=== PATIENT | male | born 1955 | race Caucasian/White ===

== ENCOUNTER → 2017-12-04 | Outpatient (CLI) | payer OTHER ==
[~2017-12-04] MED LIST: COZAAR50 MG
== END | disposition home or self-care (01) ==
LOC: PPH VACUNA 15:25
DX: Z23 Encounter for immunization (principal)

== ENCOUNTER 2019-12-08 08:39 | Outpatient (CLI) | payer OTHER | END 2019-12-08 09:05 | disposition home or self-care (01) | LOC: LAB 08:39 | DX: R19.7 Diarrhea, unspecified (principal); B17.8 Other specified acute viral hepatitis ==

== ENCOUNTER 2019-12-13 07:41 | Outpatient (CLI) | payer OTHER | END 2019-12-13 07:53 | disposition home or self-care (01) | LOC: TOM 07:41 | DX: R10.2 Pelvic and perineal pain (principal) ==

== ENCOUNTER → 2020-02-20 | Outpatient (CLI) | payer OTHER | END | disposition home or self-care (01) | LOC: RAD 13:01 | PROVIDERS: ATTEND Anesthesiology Pain Medicine | DX: M54.5 Low back pain (principal); M41.9 Scoliosis, unspecified; M51.36 Other intervertebral disc degeneration, lumbar region | CPT/HCPCS: 72148 ==

== ENCOUNTER 2020-06-25 10:00 | Outpatient (CLI) | payer OTHER | END 2020-06-25 18:00 | disposition home or self-care (01) | LOC: PPH VACUNA 10:00 | DX: Z23 Encounter for immunization (principal) ==

== ENCOUNTER 2020-07-22 15:26 | Outpatient (CLI) | payer OTHER | END 2020-07-22 15:30 | disposition home or self-care (01) | LOC: RAD 15:26 | PROVIDERS: ATTEND Specialist | DX: J45.998 Other asthma (principal) ==

== ENCOUNTER 2020-09-22 14:55 | Outpatient (CLI) | payer OTHER | END 2020-09-22 18:00 | disposition home or self-care (01) | LOC: PPH VACUNA 14:55 | DX: Z23 Encounter for immunization (principal) ==

== ENCOUNTER 2020-10-12 11:10 | Outpatient (CLI) | payer OTHER | END 2020-10-12 11:11 | disposition home or self-care (01) | LOC: PPH VACUNA 11:10 | DX: Z23 Encounter for immunization (principal) ==

== ENCOUNTER 2021-07-05 08:00 | Outpatient (CLI) | payer OTHER | END 2021-07-05 08:30 | disposition home or self-care (01) | LOC: PPH VACUNA 08:00 | PROVIDERS: ATTEND Emergency Medicine Pediatric Emergency Medicine | DX: Z23 Encounter for immunization (principal) ==

== ENCOUNTER 2022-01-17 09:00 | Outpatient (CLI) | payer OTHER | END 2022-01-17 09:15 | disposition home or self-care (01) | LOC: PPH VACUNA 09:00 | PROVIDERS: ATTEND Emergency Medicine Pediatric Emergency Medicine | DX: Z23 Encounter for immunization (principal) ==

== ENCOUNTER 2022-03-23 09:00 | Outpatient (CLI) | payer OTHER | END 2022-03-23 10:30 | disposition home or self-care (01) | LOC: ASH CLINIC 09:00 | PROVIDERS: ATTEND Internal Medicine | DX: U07.1 COVID-19 (principal) ==

== ENCOUNTER 2022-08-02 11:10 | Outpatient (CLI) | payer OTHER | END 2022-08-02 11:15 | disposition home or self-care (01) | LOC: PPH VACUNA 11:10 | PROVIDERS: ATTEND Emergency Medicine Pediatric Emergency Medicine | DX: Z23 Encounter for immunization (principal) ==

== ENCOUNTER 2023-09-29 09:05 | Outpatient (CLI) | payer OTHER | END 2023-09-29 09:48 | disposition home or self-care (01) | LOC: RAD 09:05 | PROVIDERS: ATTEND Orthopaedic Surgery | DX: M25.561 Pain in right knee (principal); M25.562 Pain in left knee; M25.551 Pain in right hip; M25.552 Pain in left hip ==

== ENCOUNTER 2024-11-01 06:34 | Outpatient (CLI) | payer OTHER ==
[2024-11-01 07:14] LABS: HEMATOCRIT 49.1 % (39.0-48.0); HEMOGLOBIN 17.1 g/dL (13-16.00); MEAN CELL VOLUME 93.6 fL (80.0-100.00); MEAN CORPUSCULAR HEMOGLOBIN 32.6 pg (27.00-32.0); MEAN CORPUSCULAR HGB CONC 34.8 g/dl (32.0-36.0); PLATELET COUNT 249 K/uL (150-450); RED BLOOD COUNT 5.24 M/uL (4.00-6.00); RED CELL DISTRIBUTION WIDTH 13.5 % (11.5-14.5)
[2024-11-01 07:49] LABS: URINE APPEARANCE Clear; URINE BACTERIA 14.6 uL (0.0-1933); URINE BILIRRUBIN Negative (NEGATIVE); URINE BLOOD Negative; URINE COLOR Yellow; URINE EPITHELIAL CELLS 5.5 uL (0.0-38.8); URINE GLUCOSE Negative (NEGATIVE); URINE KETONE Negative (NEGATIVE); URINE LEUKOCYTE Small; URINE NITRATE Negative; URINE PROTEIN Negative (NEGATIVE); URINE RBC 2.2 uL (0.0-20.8); URINE UROBILINOGEN 0.2 E.U./dl; URINE WBC 23.3 uL (0.0-23.2)
[2024-11-01 07:51] LABS: URINE CAST 0.14 uL (0.0-1.40)
[2024-11-01 08:46] LABS: ALBUMIN 3.9 gm/dL (3.4-5.0); BILIRUBIN TOTAL 1.51 mg/dL (0.3-1.2); CALCIUM 9.2 mg/dL (8.5-10.1); CHOL HDL RATIO 3.4 (0-5.0); CREATININE SERUM 0.98 mg/dL (0.70-1.30); GFR 76.29; POTASSIUM 4.68 mEq/L (3.5-5.1); T4 TOTAL 7.91 UG/DL (4.5-12.1); TOTAL PROTEIN 6.9 gm/dL (6.4-8.2); TSH 2.09 uIU/mL (0.358-3.74)
[2024-11-01 09:04] LABS: PROSTATIC SPECIFIC ANTIGEN 9.54 NG/ML (0.010-4.00)
[2024-11-01 10:15] LABS: ob NEGATIVE (NEGATIVE)
== END 2024-11-01 06:35 | disposition home or self-care (01) ==
LOC: LAB 06:34
PROVIDERS: ATTEND Internal Medicine
DX: E03.9 Hypothyroidism, unspecified (principal); N39.0 Urinary tract infection, site not specified; E78.9 Disorder of lipoprotein metabolism, unspecified; N41.0 Acute prostatitis; I10 Essential (primary) hypertension; R97.20 Elevated prostate specific antigen [PSA]

== ENCOUNTER 2024-12-17 06:19 | Outpatient (CLI) | payer OTHER ==
[2024-12-17 07:10] LABS: HEMATOCRIT 47.1 % (39.0-48.0); MEAN CELL VOLUME 94.3 fL (80.0-100.00); MEAN CORPUSCULAR HGB CONC 33.9 g/dl (32.0-36.0); PLATELET COUNT 255 K/uL (150-450); RED BLOOD COUNT 4.99 M/uL (4.00-6.00); RED CELL DISTRIBUTION WIDTH 13.2 % (11.5-14.5)
[2024-12-17 07:16] LABS: INR 1.01; PARTIAL THROMBOPLASTIN TIME 28.9 SECONDS (22.0-34.0)
[2024-12-17 07:29] LABS: ALBUMIN 3.6 gm/dL (3.4-5.0); BILIRUBIN TOTAL 1.18 mg/dL (0.3-1.2); CALCIUM 8.9 mg/dL (8.5-10.1); CREATININE SERUM 0.98 mg/dL (0.70-1.30); GFR 76.29; GLOBULINA 2.9 G/DL (2.4-3.5); MAGNESIUM 2.3 mg/dL (1.8-2.4); POTASSIUM 4.26 mEq/L (3.5-5.1); TOTAL PROTEIN 6.5 gm/dL (6.4-8.2); URIC ACID 4.6 mg/dL (3.5-8.5)
[2024-12-17 07:40] LABS: COL EPI 140 SECONDS (82-175)
[2024-12-17 08:56] LABS: PH,URINE 5.5 (5.0-8.0); URINE APPEARANCE Cloudy; URINE BILIRRUBIN Negative (NEGATIVE); URINE BLOOD Negative; URINE COLOR Dark Yellow; URINE GLUCOSE Negative (NEGATIVE); URINE KETONE Negative (NEGATIVE); URINE LEUKOCYTE Negative; URINE NITRATE Negative; URINE PROTEIN Trace (NEGATIVE)
[2024-12-17 08:58] LABS: URINE BACTERIA 18.3 uL (0.0-1933); URINE WBC 16.4 uL (0.0-23.2)
[2024-12-17 08:59] LABS: URINE CAST 0.73 uL (0.0-1.40)
== END 2024-12-17 06:23 | disposition home or self-care (01) ==
LOC: LAB 06:19
PROVIDERS: ATTEND Orthopaedic Surgery
DX: D64.9 Anemia, unspecified (principal); E88.89 Other specified metabolic disorders; D68.8 Other specified coagulation defects; N39.0 Urinary tract infection, site not specified; Z22.322 Carrier or suspected carrier of Methicillin resistant Staphylococcus aureus; E55.9 Vitamin D deficiency, unspecified; M85.9 Disorder of bone density and structure, unspecified; M10.9 Gout, unspecified

== ENCOUNTER 2024-12-20 06:56 | Outpatient (CLI) | payer OTHER | END 2024-12-20 07:51 | disposition home or self-care (01) | LOC: RAD 06:56 | PROVIDERS: ATTEND Orthopaedic Surgery | DX: M25.562 Pain in left knee (principal); M25.552 Pain in left hip ==

== ENCOUNTER → 2025-01-16 14:11 | Outpatient (CLI) | payer OTHER | END | disposition home or self-care (01) | LOC: NUCLEAR 14:11 | PROVIDERS: ATTEND Orthopaedic Surgery | DX: M81.0 Age-related osteoporosis without current pathological fracture (principal) ==